=== PATIENT | female | born 1975 | race African-American/Black ===

== ENCOUNTER 2016-06-21 23:05 | Emergency (ER) | payer OTHER ==
[~2016-06-21] VITALS: Ht 162.6 cm; Wt 63.5 kg
[2016-06-22] VITALS (7 sets, daily range): BP systolic 127–158; BP diastolic 70–97
[2016-06-22 00:34] LABS: APPEARANCE,URINE CLOUDY; KETONES,URINE 1+ (NEGATIVE); LEUKOCYTE ESTERASE ,URINE 3+ (NEGATIVE); NITRITE,URINE POSITIVE (NEGATIVE); PH,URINE 6 (4.5-8.0); PROTEIN,URINE 3+ (NEGATIVE); UROBILINOGEN,URINE 8 MG/DL (0.0-1.0)
[2016-06-22] MEDS ORDERED: Cephalexin 500mg cap ORAL ONE ×2 (01:30→22:30)
[2016-06-22 01:46] LABS: SQUAMOUS EPITHELIAL CELL,UR FEW /LPF (NONE/OCC); WBC,URINE TNTC /HPF (0 - 2)
[2016-06-22 01:47] LABS: BACTERIA,URINE MANY /HPF; TRANSITIONAL EPI CELLS,URINE FEW /LPF
[2016-06-22] MEDS ORDERED: KEFLEX500 MG ORAL (01:51)
--- NOTE | 2016-06-22 01:52 | Emergency Room Report ---
History of Present Illness General Chief Complaint: Behavioral Complaint Source: Patient, EMS Present Illness HPI Is a 40-year-old female with no past medical history. She presents with suprapubic pain. She said she is urinary tract infection for the last month. She unable to get antibiotics that she is homeless. She's been in several hospital. She been getting antibiotics here in there. Denies any fever chills denies any nausea vomiting. Nothing made it better. Urinating made it worse. No back pain. Allergies: Coded Allergies: No Known Allergies (Unverified , 06/21/16) Patient History Past Medical History: old chart reviewed, psych hx Past Surgical History: other Pertinent Family History: none Social History: Denies: smoking Now: No Immunizations: other Reviewed Nursing Documentation: PMH: Agreed, PSxH: Agreed Nursing Documentation-PMH Past Medical History: No History, Except For History Of Psychiatric Problem: Yes - SCHIZOPHRENIA, BIPOLAR, DEPRESSION Review of Systems Eye: Denies: blurred vision, eye pain ENT: Denies: ear pain, nose congestion, throat swelling Respiratory: Denies: cough, shortness of breath Cardiovascular: Denies: chest pain, palpitations Gastrointestinal: Denies: abdominal pain, diarrhea, nausea, vomiting Musculoskeletal: Denies: back pain, joint pain Skin: Denies: rash Neurological: Denies: headache, numbness Endocrine: Denies: increased thirst, increased urine Hematologic/Lymphatic: Denies: easy bruising All Other Systems: negative except mentioned in HPI Physical Exam Vital Signs Date Time Temp Pulse Resp B/P Pulse Ox O2 Delivery O2 Flow Rate FiO2 06/21/16 23:02 97.5 101 16 139/93 99 vitals normal Sp02 EP Interpretation: reviewed, normal General Appearance: well appearing, no apparent distress, alert Head: normocephalic, atraumatic Eyes: bilateral eye EOMI, bilateral eye PERRL ENT: hearing grossly normal, normal pharynx Neck: full range of motion, supple, no meningismus Respiratory: chest non-tender, lungs clear, normal breath sounds Cardiovascular #1: regular rate, rhythm, no murmur Gastrointestinal: normal bowel sounds, non tender, no mass, no organomegaly, no bruit, non-distended Musculoskeletal: back normal, gait/station normal, normal range of motion Psychiatric: mood/affect normal Skin: warm/dry Medical Decision Making Diagnostic Impression: Primary Impression: UTI (urinary tract infection) Qualified Codes: N30.00 - Acute cystitis without hematuria Additional Impressions: Cocaine abuse Amphetamine abuse ER Course patient with UTI. Does antibiotics given here. She's also positive for drug abuse. She admits that now. She does not want nursing home worker or placement. The c. To the morning and let her go. Last Vital Signs Date Time Temp Pulse Resp B/P Pulse Ox O2 Delivery O2 Flow Rate FiO2 06/21/16 23:02 97.5 101 16 139/93 99 Status: improved Disposition: HOME, SELF-CARE Condition: Stable Scripts Cephalexin* (KEFLEX*) 500 Mg Capsule 500 MG ORAL TID, #21 CAP 0 Refills Prov: PRATIK MEDEL M.D. 06/22/16 Referrals: NON PHYSICIAN (PCP) Additional Instructions: Abstain from drugs and alcohol. Followup with your in DrSidd[facility] 2 to 3 days. Return if worse. PRATIK MEDEL M.D. Jun 22, 2016 01:52
[2016-06-22] MEDS ORDERED: LORazepam 1mg tab ORAL ONE (06:45)
[2016-06-22 08:14] LABS: BASOPHILS % (AUTO) 0.8 % (0.0-2.0); EOSINOPHILS % (AUTO) 0.4 % (0.0-3.0); MEAN CORPUSCULAR HEMOGLOBIN 22.4 PG (27.0-31.0); MEAN CORPUSCULAR HGB CONC 30.4 G/DL (32.0-36.0); MEAN CORPUSCULAR VOLUME 74 FL (80-99); MONOCYTES % (AUTO) 5.7 % (1.0-10.0); NEUTROPHILS % (AUTO) 51.2 % (45.0-75.0); PLATELET COUNT 277 K/UL (150-450); RED BLOOD COUNT 5.04 M/UL (4.20-5.40); RED CELL DISTRIBUTION WIDTH 13.4 % (11.6-14.8); WHITE BLOOD COUNT 8.9 K/UL (4.8-10.8)
[2016-06-22 08:33] LABS: ALANINE AMINOTRANSFERASE 9 U/L (3-33); ALBUMIN/GLOBULIN RATIO 0.5 (1.0-2.7); ALCOHOL < 10 mg/dL; ANION GAP 14 (5-15); ASPARTATE AMINO TRANSFERASE 25 U/L (5-40); CALCIUM 8.7 mg/dL (8.6-10.2); CARBON DIOXIDE 27 mEQ/L (20-30); CHLORIDE 95 mEQ/L (98-107); GLOMERULAR FILTRATION RATE > 60 mL/min (>60); HEMOLYSIS 0; POTASSIUM 3.5 mEQ/L (3.4-4.9); SODIUM 136 mEQ/L (135-145); TOTAL PROTEIN 8.8 g/dL (6.6-8.7)
[2016-06-23 02:15] VITALS: BP 122/81
[2016-06-23 05:30] VITALS: BP 133/93
[2016-06-23 08:00] VITALS: BP 128/86
[2016-06-23] MEDS: Cephalexin 500mg cap ORAL SCH ×2 (09:18→12:49)
[2016-06-23 11:55] VITALS: BP 124/81
[2016-06-23] MEDS ORDERED: Cephalexin 500mg cap ORAL ONE (15:30)
[2016-06-23] MEDS ORDERED: LORazepam 1mg tab ORAL ONE (15:45)
[2016-06-23 16:07] VITALS: BP 119/76
[2016-06-23 16:08] VITALS: BP 119/76
[2016-06-23] MEDS ORDERED: Haloperidol 5mg/ml Inj IM ONE (16:30)
[2016-06-23] MEDS ORDERED: DiphenhydrAMINE 50mg/ml Inj IM ONE (16:30)
[2016-06-26 13:12] LABS: HIV-1 ANTIBODY Positive (Negative); HIV-2 ANTIBODY Negative (Negative)
== END 2016-06-23 16:08 ==
LOC: EDBD 23:05 → EMR 23:36
DX: N30.00 Acute cystitis without hematuria (principal); R45.851 Suicidal ideations; F14.10 Cocaine abuse, uncomplicated; F15.10 Other stimulant abuse, uncomplicated; Z59.0 Homelessness; Z86.59 Personal history of other mental and behavioral disorders; Z11.4 Encounter for screening for human immunodeficiency virus [HIV]
CPT/HCPCS: 36415; 80053; 80300; 80329; 81003; 81025; 85025; 86689; 86703; 86705; 86709; 86803; 87086; 87181; 87340; 99284